=== PATIENT | female | born 1980 | race Two or more races ===

== ENCOUNTER 2017-03-20 10:29 | Outpatient (CLI) | payer OTHER | END 2017-03-20 10:39 | disposition home or self-care (01) | LOC: LAB 10:29 | DX: N60.11 Diffuse cystic mastopathy of right breast (principal) ==

== ENCOUNTER → 2017-03-20 | Outpatient (CLI) | payer OTHER | END | disposition home or self-care (01) | LOC: MAMO-SONO 11:37 | DX: Z12.31 Encounter for screening mammogram for malignant neoplasm of breast (principal); N60.11 Diffuse cystic mastopathy of right breast; N60.12 Diffuse cystic mastopathy of left breast ==

== ENCOUNTER 2023-05-29 07:55 | Outpatient (CLI) | payer OTHER | END 2023-05-29 15:23 | disposition home or self-care (01) | LOC: SONOGRAMA 07:55 | DX: S76.322A Laceration of muscle, fascia and tendon of the posterior muscle group at thigh level, left thigh, initial encounter (principal) ==